=== PATIENT | female | born 1980 | race Caucasian/White ===

== ENCOUNTER 2018-07-01 23:42 | Emergency (ER) | payer MEDICAID ==
[~2018-07-01] VITALS: Ht 154.9 cm; Wt 56.2 kg
[2018-07-01 23:57] VITALS: Ht 154.9 cm; Wt 56.2 kg
[2018-07-02 00:34] LABS: BASOPHIL % 0.5 % (0-2); PLATELET COUNT 263 x10^3mcL (130-400); RED CELL DISTRIBUTION WIDTH 13.1 % (11.5-14.5)
[2018-07-02 00:45] LABS: CALCIUM 8.3 mg/dL (8.5-10.1); CARBON DIOXIDE 27.6 mmol/L (21-32); CHLORIDE SERUM 99 mmol/L (98-107); CREATININE SERUM 0.9 mg/dL (0.6-1.0); GFR1 > 60 mL/min; GLUCOSE SERUM 100 mg/dL (74-106); POTASSIUM SERUM 4.1 mmol/L (3.5-5.1); SODIUM SERUM 133 mmol/L (136-145)
[2018-07-02 00:49] LABS: ALBUMIN 3.7 g/dL (3.4-5.0); ALKALINE PHOSPHATASE 62 U/L (46-116); ALT/SGPT 16 U/L (14-59); AST/SGOT 18 U/L (15-37); BILIRUBIN TOTAL 0.3 mg/dL (0.20-1.00); LIPASE 106 IU/L (73-393)
[2018-07-02 02:00] VITALS: BP 101/62
== END 2018-07-02 01:56 | disposition home or self-care (01) ==
LOC: ED 23:42
PROVIDERS: Emergency Medicine
DX: N39.0 Urinary tract infection, site not specified (principal)
CPT/HCPCS: 36415; J0696; J1885; Q0092

== ENCOUNTER 2018-11-18 17:23 | Emergency (ER) | payer OTHER ==
[~2018-11-18] VITALS: Ht 157.5 cm; Wt 58.5 kg
[2018-11-18 17:48] VITALS: Ht 157.5 cm; Wt 58.5 kg
[2018-11-18 19:37] VITALS: BP 106/66
== END 2018-11-18 19:37 | disposition home or self-care (01) ==
LOC: ED 17:23
DX: S05.11XA Contusion of eyeball and orbital tissues, right eye, initial encounter (principal); S40.812A Abrasion of left upper arm, initial encounter; S20.412A Abrasion of left back wall of thorax, initial encounter; H11.31 Conjunctival hemorrhage, right eye; T74.21XA Adult sexual abuse, confirmed, initial encounter; Y93.89 Activity, other specified; Y92.89 Other specified places as the place of occurrence of the external cause; Y99.8 Other external cause status
CPT/HCPCS: 90715

== ENCOUNTER 2018-11-28 15:19 | Emergency (ER) | payer OTHER ==
[~2018-11-28] VITALS: Ht 157.5 cm; Wt 58.1 kg
[2018-11-28 15:29] VITALS: Ht 157.5 cm; Wt 58.1 kg
[2018-11-28 16:47] VITALS: BP 103/67
== END 2018-11-28 16:47 | disposition home or self-care (01) ==
LOC: ED 15:19
DX: S61.303A Unspecified open wound of left middle finger with damage to nail, initial encounter (principal); W23.0XXA Caught, crushed, jammed, or pinched between moving objects, initial encounter; Y93.89 Activity, other specified; Y92.810 Car as the place of occurrence of the external cause; Y99.8 Other external cause status

== ENCOUNTER 2019-02-13 19:06 | Emergency (ER) | payer MEDICAID ==
[~2019-02-13] VITALS: Ht 157.5 cm; Wt 56.7 kg
[2019-02-13 20:24] VITALS: BP 111/67
== END 2019-02-13 20:24 | disposition home or self-care (01) ==
LOC: ED 19:06
DX: N94.6 Dysmenorrhea, unspecified (principal); Z88.8 Allergy status to other drugs, medicaments and biological substances